=== PATIENT | female | born 1980 | race Caucasian/White ===

== ENCOUNTER 2017-03-16 08:12 | Emergency (ER) | payer OTHER ==
[~2017-03-16] VITALS: Ht 167.6 cm; Wt 129.0 kg
[~2017-03-16 08:12] MED LIST: CELE10TA9 PO; IBUP600T26 PO; LORTA5 PO; LOSA25 PO
[2017-03-16 08:19] VITALS: BP 175/96; PULSE 114; RESP 18; TEMP 99.4; O2SAT 95
--- NOTE | 2017-03-16 08:35 | PD ---
HPI Chief Complaint: panic attack Time Seen by Provider: 08:27 Travel History International Travel<30 days: No Contact w/Intl Traveler<30days: No History of Present Illness HPI This is a 36-year-old female who presents to the emergency department with onset this morning at work of shaking, anxiety, palpitations and feeling like she has to focus on taking a deep breath. Her symptoms are constant and severe. She says it feels like a panic attack. She's never had a panic attack before. She denies any chest pain or shortness of breath. She doesn't take any medications and she denies any drug use. PFSH Past Medical History Cancer: Yes (BCC FACE) Diabetes: No Hepatitis: No Hiatal Hernia: No Thyroid Disease: No Past Surgical History Section: Yes (2) Eye Surgery: Yes (TORO EYE SX) Gynecologic Surgery: Yes ( 2003; 2006) Other Surgery: Yes Social History Alcohol Use: Yes (SOCIALLY OCCASS) Tobacco Use: No Substance Use: No Allergies-Medications (Allergen,Severity, Reaction): Uncoded Allergies: SEASONIQUE (Allergy, Severe, Anaphylaxis, 07/06/13) CONTROL PILL Reported Meds & Prescriptions Reported Meds & Active Scripts Active No Active Prescriptions or Reported Medications Review of Systems Except as stated in HPI: all other systems reviewed are Neg Physical Exam Narrative GENERAL: Anxious appearing. SKIN: Focused skin assessment warm and dry. HEAD: Atraumatic. Normocephalic. EYES: Pupils equal and round. No injection or drainage. ENT: Moist mucous membranes NECK: Trachea midline. CARDIOVASCULAR: Regular rate and rhythm. No murmur appreciated. RESPIRATORY: Clear to auscultation. Breath sounds equal bilaterally. GASTROINTESTINAL: Abdomen soft, non-tender, nondistended. MUSCULOSKELETAL: No obvious deformities. NEUROLOGICAL: Awake and alert. No obvious cranial nerve deficits. Moving all extremities. PSYCHIATRIC: Anxious, arms are shaking, patient is hyperventilating. Data Data Last Documented VS Vital Signs Date Time Temp Pulse Resp B/P (MAP) Pulse Ox O2 Delivery O2 Flow Rate FiO2 03/16/17 08:19 99.4 114 18 175/96 (122) 95 Room Air Orders Orders Lorazepam Inj (Ativan Inj) (03/16/17 08:45) MDM Medical Decision Making Medical Screen Exam Complete: Yes Emergency Medical Condition: Yes Interpretation(s) Tachycardic, hypertensive Differential Diagnosis Panic attack, acute myocardial infarction, pulmonary embolism, substance intoxication Narrative Course This is a 36-year-old female who presents to the emergency department with hyperventilation and anxiety. She appears clinically to be having a panic attack. She's not having any chest pain and I don't suspect this is a myocardial infarction. Pelvic she requires any additional diagnostic testing. Patient was given a milligram of IM Ativan. She feels much better. She says her mom gets panic attacks. Patient will be discharged home with a short course of Ativan and will follow up with a primary care physician. Diagnosis Primary Impression: Panic attack Patient Instructions: General Instructions Additional Instructions: If you develop severe chest pain, shortness of breath, sweating, lightheadedness , dizziness or difficulty breathing return to the emergency department immediately. Followup with your primary care physician in 2-3 days if your symptoms are not resolved. Med/Other Pt SpecificInfo: Prescription(s) given Scripts Lorazepam (Ativan) 0.5 Mg Tab 0.5 MG PO Q6H Y for ANXIETY AND/OR AGITATION, #10 TAB 0 Refills Prov: Amelia Aguillon MD 03/16/17 Disposition: DISCHARGE HOME Condition: Stable Amelia Aguillon MD Mar 16, 2017 08:35
[2017-03-16] MEDS ORDERED: LORazepam 2 MG/ML VIAL IM ONE (08:45)
[2017-03-16] MEDS ORDERED: LORA-392 PO (09:17)
== END 2017-03-16 09:36 | disposition home or self-care (01) ==
LOC: PHED 08:12
DX: F41.0 Panic disorder [episodic paroxysmal anxiety] (principal)
CPT/HCPCS: 96372; 99284; J2060